=== PATIENT | male | born 1945 | race Caucasian/White ===

== ENCOUNTER 2016-04-03 13:10 | Emergency (ER) | payer OTHER ==
[2016-04-03] MEDS ORDERED: NORMAL SALINE 10 ML SYRINGE FLUSH IVP PRN (13:35)
[2016-04-03 13:40] VITALS: RESP 24; TEMP 100.5
[2016-04-03 14:01] LABS: BASOPHILS # (AUTO) 0.02 10*3/UL; BASOPHILS % (AUTO) 0.3 % (0-1); EOSINOPHILS % (AUTO) 0 % (0-8); HEMATOCRIT 45.6 % (42.0-52.0); HEMOGLOBIN 14.9 g/dL (14.0-18.0); IMM GRAN % (AUTO) 0.3 % (0-5); IMM GRAN# (AUTO) 0.02 10*3/UL; LYMPHOCYTES # (AUTO) 0.37 10*3/uL; LYMPHOCYTES % (AUTO) 4.8 % (10-50); MEAN CORPUSCULAR HEMOGLOBIN 27.6 PG (27-31); MEAN CORPUSCULAR HGB CONC 32.7 g/dL (33-37); MEAN PLATELET VOLUME 9.9 FL (7.4-12.2); MONOCYTES # (AUTO) 0.78 10*3/UL (0.3-0.8); MONOCYTES % (AUTO) 10.1 % (5-15); NEUTROPHILS # (AUTO) 6.53 10*3/UL; NEUTROPHILS % (AUTO) 84.5 % (50-80); RDW COEFFICIENT OF VARIATION 14.6 % (11.5-14.5); WHITE BLOOD COUNT 7.72 10^3/uL (4.8-10.8)
--- NOTE | 2016-04-03 14:03 | DI ---
PA /LATERAL CHEST X-RAY, 04/03/2016 1:35 PM : Clinical History: Cough. Fever. Previous Exam: 08/21/2015. There is no acute soft tissue or bony abnormality. The patient has had extensive neck surgery. There is cardiomegaly without CHF. The right diaphragm is elevated. There is no acute infiltrate or effusio n. Mediastinal structures are normal. There are no pulmonary nodules. Readin. There is no acute infiltrate or effusion. 2. Cardiomegaly without CHF.
[2016-04-03 14:06] LABS: PLATELET MORPHOLOGY COMMENT NORMAL MORPHOLOGY (NORM)
[2016-04-03 14:14] LABS: ASPARTATE AMINO TRANSFERASE 20 IU/L (21-57); BILIRUBIN,TOTAL 0.4 mg/dL (0.3-1.2); BLOOD UREA NITROGEN 12 mg/dL (7-22); CALCIUM 8.6 mg/dL (8.7-10.7); CHLORIDE 103 meq/L (98-112); CREATININE 1.1 mg/dL (0.70-1.50); EST GLOMERULAR FILTRATION > 60 (>60 ml/min/1.73m(2)); GLUCOSE 105 mg/dL (78-110); POTASSIUM 3.8 meq/L (3.8-5.2); SODIUM 139 meq/L (135-145); TOTAL PROTEIN 6.8 g/dL (6.1-8.0)
--- NOTE | 2016-04-03 15:11 | PDOC ---
General Adult HPI - General Chief Complaint: General Medical Stated Complaint: cough, fever, myalgia, recent strep exposure Date Seen by Provider: 04/03/16 Time Seen by Provider: 13:25 Source: POSITIVE: Patient, Spouse Exam Limitations: POSITIVE: No limitations Nurse's Notes Reviewed & Considered: Yes - History of Present Illness Initial Comment: The patient is a 71-year-old male. He states that for the past 2 days he has had a sore throat, myalgia, fever up to 102 and a productive cough. Headache. He states that he was recently caring for his grandchildren, who were diagnosed with strep throat. He called his primary care doctor with this information who started him on amoxicillin, and patient has had 3 doses of amoxicillin [employer]. Patient states he does not feel any better after starting amoxicillin. Have you received a tetanus shot in the past 10 years?: Yes Body Location Affected: REPORTS: Head, Chest, Other (Fever, sore throat, cough, headache, myalgia) Timing: REPORTS: Abrupt, Getting Worse Duration: >24 hours (1-2 days) Severity: Moderate Quality: REPORTS: "Pain" (Sore throat, headache, myalgia) Context: REPORTS: Coughing Modifying Factors: improves with: Coughing Associated Symptoms: Sore throat, fevers, myalgia, cough, headache Similar Symptoms Previously: No (patient has not had an influenza vaccination) Recent Care Received: REPORTS: Recently Seen (As above), Treated by MD Any Prior Injuries Related to Current Complaint?: No - Patient Home Medications Home Medications: Home Medications Multivitamin [Multi Vitamin Daily] 1 each PO DAILY tab 05/24/13 Garlic 200 mg PO DAILY tab 11/14/13 Potassium Gluconate [Potassium] 99 mg PO DAILY tab 11/14/13 Vitamin B Complex 1 each PO DAILY tab 11/14/13 Polyethylene Glycol 3350 [Miralax] 119 gm PO DAILY 05/25/14 Oxycodone HCl/Acetaminophen [Percocet 10-325 Mg Tablet] 1 tab PO Q6H #30 tab Amlodipine Besylate 5 mg PO DAILY #90 tab 12/28/15 Eletriptan Tab [Relpax Tab] 1 - 2 tab PO QD PRN #6 tab 12/28/15 Lisinopril 1 tab PO DAILY #90 tab 12/28/15 Amoxicillin Trihydrate [Amoxicillin] 875 mg PO Q12H #20 tab 04/02/16 Oseltamivir Phosphate [Tamiflu] 75 mg PO Q12H #10 capsule 04/03/16 Ranitidine HCl [Zantac 75] 75 mg PO DAILY 04/03/16 - Patient Allergies Allergies/Adverse Reactions: Allergies Allergy/AdvReac Type Severity Reaction Status Date / Time ondansetron HCl Allergy Intermediate SKIN Verified 04/03/16 13:14 [From Zofran (as CRAWLING hydrochloride)] morphine AdvReac Intermediate severe Verified 04/03/16 13:14 stomach distress inability to tolerate meds Allergy Severe NOT Uncoded 04/03/16 13:14 that have possible GI Side APPLICABLE effects Past Medical History - heen HEENT History: Denies History Cardiovascular History: Hypertension, Hyperlipidemia Respiratory History: Denies History Gastrointestinal History: GERD Genitourinary History: Denies History Endocrine History: Denies History Musculoskeletal History: Denies History Prosthesis or Implant: No Neurological History: Migraines Blood Disorders: Anemia Psychiatric History: Denies History History of Sexually Transmitted Diseases: No Cancer History: Denies History In Past Year Been Physically Harmed or Verbally Threatened: No History of MDRO: No History of Other Communicable Diseases: No Tobacco Use: Never Smoker Alcohol Use: None Substance Use Type: None Previous Surgical History: Yes Type / Date of Surgery: TONSILLECTOMY, ADENOIDECTOMY, APPENDECTOMY, CHOLECYSTECTOMY, LEFT TESTICLE GROWTH REMOVAL, 18" COLECTOMY. Anesthesia Reactions: No Malignant Hyperthermia: No Significant Family History: No pertinent family hx Past Medical History Reviewed: Reviewed - No Changes ROS - Limitations ROS Limitations: No Limitations Constitution: REPORTS: Fever, Other (Myalgia) Cardiovascular: REPORTS: Denies Cardiac Symptoms Respiratory: REPORTS: Cough Productive (Productive of mucoid sputum) Neurological: REPORTS: Denies Neuro Symptoms Gastrointestinal: REPORTS: Denies GI Symptoms Endocrine: REPORTS: Denies Symptoms Musculoskeletal: REPORTS: Denies MS Symptoms Genitourinary: REPORTS: Denies Symptoms Eyes: REPORTS: Denies Symptoms ENT: REPORTS: Sore Throat Skin: REPORTS: Denies Skin Symptoms Lympathic: REPORTS: Denies Lympathic Symptoms Immunologic: POSITIVE: Denies Symptoms Psychiatric: POSITIVE: Denies Psych Symptoms General Adult Exam - General Appearance General Appearance: POSITIVE: Alert, Cooperative, No Acute Distress, No Evidence of Trauma - HEENT HEENT: POSITIVE: Head Inspection Nml, Eyes Inspection Nml, Ears Inspection Nml, Nose Inspection Nml, Oral/Dental Inspect. Nml, PERRL, EOMI, Pharyngeal Erythema. NEGATIVE: Pharynx Inspect. Nml (Pharynx mildly erythematous) - Pupils Pupil Size: 4 mm: Bilateral (PERRLA) - Neck Neck: POSITIVE: Normal Inspection, Thyroid Normal - Respiratory Respiratory: POSITIVE: No Respiratory Distress, Breath Sounds Normal, Chest Non- Tender - Cardiovascular Cardiovascular: POSITIVE: Regular Rate & Rhythm, No Murmur, No Gallop, PMI Normal Peripheral Pulses: Radial (R): 2+, Radial (L): 2+ - Abdomen Abdomen: Soft: (All Quadrants), Normal Bowel Sounds: (All Quadrants), Denies Tenderness: (All Quadrants), No Splenomegaly: (All Quadrants), No Hepatomegaly: (All Quadrants), No Guarding: (All Quadrants), No Rebound: (All Quadrants), No Palpable Pulse: (All Quadrants), No Palpabale Mass: (All Quadrants), No Distention: (All Quadrants), No Rigidity: (All Quadrants) - Back Back: POSITIVE: Normal Inspection - Skin Skin: POSITIVE: Normal Color, Warm, Dry, No Rash - Extremities Extremity: Non-Tender: (All Extremities), Normal ROM: (All Extremities), Normal Inspection: (All Extremities) - Neurological / Psychological Neurological: POSITIVE: Affect Apporpriate, Oriented X3, hairspring vibrator Normal As Tested, Motor Normal, Sensation Normal Images - Dental Dental: 1 - Mild pharyngeal erythema General Adult Progress - Results Reviewed by me Xrays/CTs/US Reviewed by me: Yes Discussed with Radiologist: Yes Radiology Findings: Chest x-ray normal Lab Results Reviewed: Yes (influenza A positive; rapid strep screen negative) Lab Results:: Laboratory Results 04/03/16 Range/Units 13:59 WBC 7.72 (4.8-10.8) 10^3/uL RBC 5.40 (4.70-6.10) 10^6/uL Hgb 14.9 (14.0-18.0) g/dL Hct 45.6 (42.0-52.0) % MCV 84.4 (80-90) FL MCH 27.6 (27-31) PG MCHC 32.7 L (33-37) g/dL RDW Std Deviation 44.7 (39-50) fL RDW Coeff of Leigha 14.6 H (11.5-14.5) % Plt Count 195 (140-350) 10*3/uL MPV 9.9 (7.4-12.2) FL Immature Gran % (Auto) 0.3 (0-5) % Neut % (Auto) 84.5 H (50-80) % Lymph % (Auto) 4.8 L (10-50) % [place] % (Auto) 10.1 (5-15) % Eos % (Auto) 0 (0-8) % Baso % (Auto) 0.3 (0-1) % Immature Gran # (Auto) 0.02 10*3/UL Neut # (Auto) 6.53 10*3/UL Lymph # (Auto) 0.37 10*3/uL [place] # (Auto) 0.78 (0.3-0.8) 10*3/UL Eos # (Auto) 0 10*3/UL Baso # (Auto) 0.02 10*3/UL WBC Morphology Comment Normal morphology (NORM) Plt Morphology Comment Normal morphology (NORM) RBC Morph Comment Normal morphology (NORM) Sodium 139 (135-145) meq/L Potassium 3.8 (3.8-5.2) meq/L Chloride 103 (98-112) meq/L Carbon Dioxide 22 L (23-33) meq/L Anion Gap 14 (5-20) BUN 12 (7-22) mg/dL Creatinine 1.1 (0.70-1.50) mg/dL Estimated GFR > 60 (>60 ml/min/1.73m(2)) BUN/Creatinine Ratio 10.90 (6-20) Glucose 105 (78-110) mg/dL Calculated Osmolality 287.0 (267-292) mOsm/kg Calcium 8.6 L (8.7-10.7) mg/dL Total Bilirubin 0.4 (0.3-1.2) mg/dL AST 20 L (21-57) IU/L ALT 38 (21-72) IU/L Alkaline Phosphatase 69 (38-126) IU/L Total Protein 6.8 (6.1-8.0) g/dL Albumin 4.1 (3.5-4.8) g/dL Globulin 2.7 (2.50-4.10) g/dL Albumin/Globulin Ratio 1.50 (1.3-2.0) mg/g - Patient's Progress Pain Medication Addressed: POSITIVE: Not Applicable School/Work Release Addressed: POSITIVE: Not Applicable Re-Examine Time: 14:20 Status: POSITIVE: Unchanged, Re-Examined Antibiotics Given: Yes (Tamiflu, 75 mg twice daily for 5 days) - Consult Counseled: POSITIVE: Patient, Family (), RE: Lab Results, RE: Radiology Results, RE: DX, RE: Need for F/U Patient Care Time - Estimated PCT Patient Care Time (In Minutes): 40 Vital Signs - Recent Vital Signs Vital Signs: Vital Signs (Last 8 hours) Temp Pulse Resp BP Pulse Ox 04/03/16 13:11 100.5 F H 102 H 24 155/102 89 - VS Reviewed Vital Signs Reviewed: Yes Discharge Clinical Impression: Influenza A Discharge Disposition: Discharged to Home Condition: Stable Prescriptions / Orders: Oseltamivir Phosphate [Tamiflu] 75 mg PO Q12H #10 capsule Patient Instructions Given at Discharge: Influenza (ED) Additional Instructions: You have influenza. Influenza can make you feel miserable. Please take Tamiflu , one every 12 hours for 10 doses. Eyeball also given you a prescription for Tamiflu, which will hopefully prevent her from getting this infection. Avoid kissing, sharing glasses, coughing and sneezing around other people, etc. Wash your hands frequently. Return anytime if condition worsens. Follow-up with your primary care provider. Follow Up With: VANESA LEE [Primary Care Provider] - (Instructions as above. Follow-up with your primary care provider. Return here anytime if condition worsens.)
--- NOTE | 2016-04-03 17:26 | EKG ---
[address] [address] Measurements Intervals [place] Rate: 100 P: 16 MD: 134 QRS: -36 QRSD: 93 T: 11 QT: 339 QTc: 396 Interpretive Statements SINUS TACHYCARDIA WITH OCCASIONAL SUPRAVENTRICULAR PREMATURE COMPLEXES MARKED LEFT AXIS DEVIATION [QRS AXIS < -30] Compared to ECG 08/22/2014 18:51:36 Sinus rhythm no longer present Electronically Signed On 04-04-16 08:52:23 MST by Phillip Lomeli MD [email or web address]
== END 2016-04-03 14:45 | disposition home or self-care (01) ==
LOC: ER 13:10
DX: J09.X2 Influenza due to identified novel influenza A virus with other respiratory manifestations (principal); R50.9 Fever, unspecified; R51 Headache; J02.9 Acute pharyngitis, unspecified
CPT/HCPCS: 36415; 71020; 80053; 85025; 87802; 87804; 93005; 93010; 99283